=== PATIENT | female | born 1995 | race Two or more races ===

== ENCOUNTER 2017-08-08 20:18 | Emergency (ER) | payer OTHER ==
[~2017-08-08] VITALS: Ht 172.7 cm; Wt 63.5 kg
[2017-08-08 20:35] VITALS: BP 137/99
[2017-08-08] MEDS ORDERED: Ketorolac 30mg Inj IV ONE (21:15)
--- NOTE | 2017-08-08 21:30 | Emergency Room Report ---
History of Present Illness General Chief Complaint: Vomiting Source: Patient Present Illness HPI Is a 22-year-old female with a history of anxiety and depression. She presents with chief complaint of epigastric pain and vomiting. Onset was acute and she' s been vomiting for last 4 hours. Unable to keep anything down. No fever or chills. Has epigastric pain. No diarrhea. Pain is crampy in nature. 02/02. Allergies: Coded Allergies: No Known Allergies (Unverified , 08/08/17) Patient History Past Medical History: see triage record, old chart reviewed, psych hx Past Surgical History: none Pertinent Family History: none Social History: Denies: smoking Last Menstrual Period: 1 week ago Now: No Immunizations: other Reviewed Nursing Documentation: PMH: Agreed, PSxH: Agreed Nursing Documentation-PMH Past Medical History: No Stated History Review of Systems Eye: Denies: eye pain, blurred vision ENT: Denies: ear pain, nose congestion, throat swelling Respiratory: Denies: cough, shortness of breath Cardiovascular: Denies: chest pain, palpitations Gastrointestinal: Reports: abdominal pain, nausea, vomiting, Denies: diarrhea Musculoskeletal: Denies: back pain, joint pain Skin: Denies: rash Neurological: Denies: headache, numbness Endocrine: Denies: increased thirst, increased urine Hematologic/Lymphatic: Denies: easy bruising All Other Systems: negative except mentioned in HPI Physical Exam Vital Signs Date Time Temp Pulse Resp B/P (MAP) Pulse Ox O2 Delivery O2 Flow Rate FiO2 08/08/17 20:29 97.9 130 22 137/99 97 Room Air vitals with tachycardia Sp02 EP Interpretation: reviewed, normal General Appearance: well appearing, no apparent distress, alert Head: normocephalic, atraumatic Eyes: bilateral eye PERRL, bilateral eye EOMI ENT: hearing grossly normal, normal pharynx Neck: full range of motion, supple, no meningismus Respiratory: chest non-tender, lungs clear, normal breath sounds Cardiovascular #1: regular rate, rhythm, no murmur Gastrointestinal: non tender, no mass, no organomegaly, no bruit, non-distended , decreased bowel sounds Musculoskeletal: back normal, gait/station normal, normal range of motion Neurologic: alert, oriented x3 Psychiatric: anxious - Anxious, hyperventilating, crying Skin: warm/dry Medical Decision Making Diagnostic Impression: Primary Impression: Vomiting Qualified Codes: R11.2 - Nausea with vomiting, unspecified ER Course Patient with epigastric pain and nausea and vomiting. Labs show some mild leukocytosis. Symptom resolved now. No guarding or rebound. Doubt acute abdomen. Doubt obstruction. Most likely beginning of a early gastroenteritis. Lab Results Impression labs mild leukocytosis Last Vital Signs Date Time Temp Pulse Resp B/P (MAP) Pulse Ox O2 Delivery O2 Flow Rate FiO2 08/08/17 20:29 97.9 130 22 137/99 97 Room Air Status: improved Disposition: HOME, SELF-CARE Condition: Stable Scripts Ondansetron Odt* (ZOFRAN ODT*) 4 Mg Tab.rapdis 4 MG ORAL Q6H Y for Nausea & Vomiting, #10 TAB 0 Refills Prov: JEROD COOLEY M.D. 08/08/17 Patient Instructions: Nausea and Vomiting, Adult Additional Instructions: Followup with your Dr. in 2-3 days if not better. Return if symptom worsen. Return for fever, pain localizing to right lower quadrant or not better in 8-12 hours. JEROD COOLEY M.D. Aug 08, 2017 21:30
[2017-08-08 22:00] LABS: BASOPHILS % (AUTO) 1.1 % (0.0-2.0); EOSINOPHILS % (AUTO) 0.1 % (0.0-3.0); HEMATOCRIT 54.8 % (37.0-47.0); LYMPHOCYTES % (AUTO) 13.1 % (20.0-45.0); MEAN CORPUSCULAR VOLUME 93 FL (80-99); MONOCYTES % (AUTO) 6.2 % (1.0-10.0); NEUTROPHILS % (AUTO) 79.4 % (45.0-75.0); PLATELET COUNT 346 K/UL (150-450); RED BLOOD COUNT 5.91 M/UL (4.20-5.40); RED CELL DISTRIBUTION WIDTH 12.3 % (11.6-14.8); WHITE BLOOD COUNT 13.4 K/UL (4.8-10.8)
[2017-08-08 22:02] LABS: APPEARANCE,URINE CLEAR; BILIRUBIN, URINE NEGATIVE (NEGATIVE); GLUCOSE, URINE (UA) NEGATIVE (NEGATIVE); KETONES,URINE 1+ (NEGATIVE); LEUKOCYTE ESTERASE ,URINE 1+ (NEGATIVE); NITRITE,URINE NEGATIVE (NEGATIVE); PH,URINE 5 (4.5-8.0); PROTEIN,URINE NEGATIVE (NEGATIVE); UROBILINOGEN,URINE NORMAL MG/DL (0.0-1.0)
[2017-08-08 22:04] LABS: COLOR,URINE YELLOW
[2017-08-08 22:13] LABS: ANION GAP 13 mmol/L (5-15); BLOOD UREA NITROGEN 10 mg/dL (7-18); CALCIUM 10.2 MG/DL (8.5-10.1); CARBON DIOXIDE 28 MMOL/L (21-32); CHLORIDE 100 MMOL/L (98-107); CREATININE 1.1 MG/DL (0.55-1.30); POTASSIUM 4.4 MMOL/L (3.5-5.1); SODIUM 141 MMOL/L (136-145)
[2017-08-08 22:25] LABS: ALANINE AMINOTRANSFERASE 26 U/L (12-78); ALBUMIN 5.2 G/DL (3.4-5.0); ALBUMIN/GLOBULIN RATIO 1.4 (1.0-2.7); ALKALINE PHOSPHATASE 89 U/L (46-116); ASPARTATE AMINO TRANSFERASE 26 U/L (15-37); BILIRUBIN,TOTAL 0.9 MG/DL (0.2-1.0)
[2017-08-08] MEDS ORDERED: ZOFRAN ODT4 MG ORAL (22:41)
[2017-08-08 22:50] VITALS: BP 137/99
== END 2017-08-08 22:50 | disposition home or self-care (01) ==
LOC: EMR 20:46 → EDBD 20:46 → EMR 22:50
DX: R11.2 Nausea with vomiting, unspecified (principal); R10.9 Unspecified abdominal pain; D72.829 Elevated white blood cell count, unspecified
CPT/HCPCS: 36415; 80053; 81003; 81025; 83690; 85025; 96374; 96375; 99284; J1885; J2405